=== PATIENT | female | born 1955 | race Caucasian/White ===

== ENCOUNTER 2019-09-14 20:06 | Emergency (ER) | payer BC, SELFPAY ==
[2019-09-14] VITALS (7 sets, daily range): BP systolic 151–183; BP diastolic 62–83; PULSE 59–74; RESP 18; TEMP 36.8; O2SAT 97–100; BMI 29.2
--- NOTE | 2019-09-14 20:32 | CTR_ITS ---
PROCEDURE INFORMATION: Exam: CT Abdomen And Pelvis With Contrast Exam date and time: 09/14/2019 9:41 PM Age: 64 years old Clinical indication: Abdominal pain; Localized; Right upper quadrant (ruq); Prior surgery; Surgery date: 6+ months; Surgery type: Appy; Additional info: Ruq pain TECHNIQUE: Imaging protocol: Computed tomography of the abdomen and pelvis with intravenous contrast. Total DLP: 1082.22 mGy-cm Radiation optimization: All CT scans at this facility use at least one of these dose optimization techniques: automated exposure control; mA and/or kV adjustment per patient size (includes targeted exams where dose is matched to clinical indication); or iterative reconstruction. Contrast material: OMNI 300; Contrast volume: 95 ml; Contrast route: IV; COMPARISON: No relevant prior studies available. FINDINGS: Liver: Normal. No mass. Gallbladder and bile ducts: There is intermediate attenuation filling the gallbladder body and fundus with low attenuation seen in the gallbladder neck likely representing gallbladder sludge filling the majority of the gallbladder. Further evaluation of this finding with gallbladder sonography is suggested. Pancreas: Normal. No ductal dilation. Spleen: There are punctate calcifications seen within the spleen compatible with calcified granulomas. Adrenals: Normal. No mass. Kidneys and ureters: Normal. No hydronephrosis. Stomach and bowel: Moderate stool is seen filling the ascending and transverse colon. Appendix: Status post appendectomy. Intraperitoneal space: Unremarkable. No free air. No significant fluid collection. Vasculature: Unremarkable. No abdominal aortic aneurysm. Lymph nodes: Unremarkable. No enlarged lymph nodes. Bladder: Unremarkable as visualized. Reproductive: Unremarkable as visualized. Bones/joints: Unremarkable. No acute fracture. Soft tissues: Unremarkable. CT/CT abdomen pelvis w con* [id number] IMPRESSION: 1. Intermediate attenuation material fills the gallbladder body and fundus with low attenuation remaining in the gallbladder neck, findings suggesting gallbladder sludge. There are no inflammatory changes seen to suggest cholecystitis. Follow-up evaluation with gallbladder sonography is suggested. 2. Moderate stool fills the ascending and transverse colon. Radiation Dose CTDIVOL = (mGy): DLP = 1082.22 (mGy-cm)
--- NOTE | 2019-09-14 20:33 | W.ED.ABDPA2 ---
HPI - Abdominal Pain General: Chief Complaint: Abdominal Pain Stated Complaint: FLU SYMPTOMS Time Seen by Provider: 09/14/19 20:26 History of Present Illness: HPI narrative: Patient complains about abdominal pain that started last night eased off a little bit throughout the night and started again today and is worse after eating at lunchtime and has not let up complains about pain in the right upper quadrant has nausea denies vomiting. Pain hurts through the back MD elicited complaint: abdominal pain Pertinent past history: none Onset (ago): hour(s) Pain Consistency: constant Location: RUQ Severity: severe Quality: stabbing and aching Associated Symptoms: Reports nausea; Denies chills, fever(s) and vomiting Review of Systems Const: Denies: fever, chills or body aches Eyes: Denies: change in vision or blurry vision ENMT: Denies: throat pain or nasal congestion Card: Denies: chest pain or shortness of breath on exertion Resp: Denies: shortness of breath, productive cough or non-productive cough GI: Reports: abdominal pain and nausea; Denies: vomiting Musc: Denies: extremity pain Skin/Breast: Denies: rash Neuro: Denies: headache Psych: Denies: anxiety or depression Roberth/Lymph: Denies: easy bruising PFSH ED PFSH: Social History Smoking and tobacco status: never smoked Physical Exam Const: COMMON NORMALS: no apparent distress, average body habitus and oriented x3 HENMT: COMMON NORMALS: normocephalic HEAD & SCALP: normal to inspection and normocephalic FACE & SINUS: normal facial exam Eye: COMMON NORMALS: conjunctivae normal GENERAL EYE: normal appearance of both eyes CONJUNCTIVA: Yes conjunctivae normal Neck/C-Spine: COMMON NORMALS: no JVD Chest: COMMONS NORMALS: inspection of chest normal Resp: COMMON NORMALS: normal respiratory effort and clear to auscultation bilaterally AUSCULTATION: clear to auscultation bilaterally Cardio: COMMON NORMALS: no JVD, regular rate and regular rhythm RATE: regular rate RHYTHM: regular rhythm GI: COMMON NORMALS: normal to inspection, nondistended, normoactive bowel sounds PALPATION: Yes tender Details: RUQ Extremity: COMMON NORMALS: normal to inspection and full ROM Neuro: COMMON NORMALS: oriented x3 Course Vital Signs: Vital signs: Vital Signs Temperature 98.3 F 09/14/19 20:22 Pulse Rate 74 09/14/19 20:22 Respiratory Rate 18 09/14/19 20:42 Blood Pressure 183/81 09/14/19 20:22 Pulse Oximetry 97 09/14/19 20:22 MDM - Abdominal Pain Lab Data: Labs: Lab Results 09/14/19 09/14/19 Range/Units 20:40 20:40 WBC 10.3 H (4.0-10.0) 10^3/ uL RBC 5.19 (4.1-5.3) 10^6/u L Hgb 15.0 (11.5-15.3) g/dL Hct 47.6 H (37.0-47.0) % MCV 91.7 (81-99) fL MCH 28.9 (28.0-34.0) pg MCHC 31.5 (30.0-36.0) g/dL RDW 12.5 (12.1-15.1) % Plt Count 301 (130-400) 10^3/c mm MPV 10.9 H (7.4-10.4) fL Neut % (Auto) 63.9 % Lymph % (Auto) 26.8 % Tripp % (Auto) 7.3 % Eos % (Auto) 1.4 % Baso % (Auto) 0.4 % Neut # (Auto) 6.6 (1.8-7.7) 10^3/u L Lymph # (Auto) 2.8 (0.8-4.8) 10^3/u L Tripp # (Auto) 0.8 (0.2-0.9) 10^3/u L Eos # (Auto) 0.1 (0.0-0.8) 10^3/u L Baso # (Auto) 0.0 (0.0-0.1) 10^3/u L Nucleated RBC % (a uto) 0 % Nucleated RBCs # 0.0 /100WBC Sodium 140 (136-145) mmol/L Potassium 3.8 (3.5-5.1) mmol/L Chloride 100 (98-107) mmol/L Carbon Dioxide 28 (22-29) mmol/L Anion Gap 15.8 (5-19) BUN 14 (8-23) mg/dL Creatinine 0.8 (0.5-0.9) mg/dL GFR Calculation 72.2 L (90-130) mL/min Glucose 133 H (65-115) mg/dL Calculated Osmolal ity 288 (285-295) mOsm/k g Calcium 10.4 (8.5-10.5) mg/dL Total Bilirubin 0.5 (0.15-1.2) mg/dL AST 22 (0-32) U/L ALT 20 (0-33) U/L Alkaline Phosphata se 59 (35-105) IU/L Total Protein 8.2 (6.6-8.7) g/dL Albumin 4.6 (3.5-5.2) g/dL Globulin 3.6 (1.3-4.6) g/dL Lipase 26 (13-60) U/L EKG Data ^: EKG 1: EKG interpretation date: 09/14/19 EKG interpretation time: 20:46 Computer generated interpretation: Sinus rhythm ventricular rate 64 bpm WV interval 164 ms QRS durations 83 Leeanna seconds low QRS voltage in precordial leads nonspecific T wave abnormality Discharge Plan Discharge Prescriptions: No Action Fish Oil 1,000 mg (120 mg-180 mg) Capsule 1 cap PO DAILY RF: 0 Daily Multiple For Women 1 tab PO DAILY RF: 0 Coding Level of Care Code ED Chief Mechanical Engineer for Chg Fwd Exam Comprehensive
--- NOTE | 2019-09-14 20:34 | ECG_ITS ---
Measurements Intervals [place] Rate: 64 P: 57 [place]: 164 QRS: 21 QRSD: 83 T: 69 QT: 387 QTc: 399 SINUS RHYTHM LOW QRS VOLTAGE IN PRECORDIAL LEADS [QRS DEFLECTION < 1.0 mV IN CHEST LEADS] NONSPECIFIC T-WAVE ABNORMALITY No previous ECG available for comparison Electronically Signed On 09-15-2019 8:01:06 CDT by Saad Camacho M.D. [email or web address]
[2019-09-14] MEDS: ondansetron 2 mg/ML SDV 2 mL 4 MG IVP (20:42)
[2019-09-14] MEDS: morphine 4 mg/mL SDV 1 mL IVP ×2 (20:42→22:05)
[2019-09-14] MEDS: sodium chloride 0.9% 1,000 ML 999 ML IV (20:43)
[2019-09-14 20:52] LABS: Basophils % 0.4 %; Eosinophils # 0.1 10^3/uL (0.0-0.8); Eosinophils % 1.4 %; Hematocrit 47.6 % (37.0-47.0); Lymphocytes # 2.8 10^3/uL (0.8-4.8); Lymphocytes % 26.8 %; Mean Corpuscular HGB Conc 31.5 g/dL (30.0-36.0); Mean Corpuscular Hemoglobin 28.9 pg (28.0-34.0); Mean Corpuscular Volume 91.7 fL (81-99); Mean Platelet Volume 10.9 fL (7.4-10.4); Monocytes # 0.8 10^3/uL (0.2-0.9); Monocytes % 7.3 %; Neutrophils # 6.6 10^3/uL (1.8-7.7); Neutrophils % 63.9 %; Nucleated Red Blood Cells % 0 %; Platelet Count 301 10^3/cmm (130-400); Red Blood Count 5.19 10^6/uL (4.1-5.3); Red Cell Distribution Width 12.5 % (12.1-15.1); White Blood Count 10.3 10^3/uL (4.0-10.0)
[2019-09-14 20:58] LABS: Alanine Aminotransferase 20 U/L (0-33); Albumin Level 4.6 g/dL (3.5-5.2); Alkaline Phosphatase 59 IU/L (35-105); Anion Gap 15.8 (5-19); Aspartate Amino Transferase 22 U/L (0-32); Blood Urea Nitrogen 14 mg/dL (8-23); Calcium 10.4 mg/dL (8.5-10.5); Carbon Dioxide 28 mmol/L (22-29); Chloride 100 mmol/L (98-107); Globulin 3.6 g/dL (1.3-4.6); Glomerular Filtration Rate 72.2 mL/min (90-130); Glucose 133 mg/dL (65-115); Lipase 26 U/L (13-60); Osmolality Calculated 288 mOsm/kg (285-295); Potassium 3.8 mmol/L (3.5-5.1); Sodium 140 mmol/L (136-145); Total Bilirubin 0.5 mg/dL (0.15-1.2); Total Protein 8.2 g/dL (6.6-8.7)
[2019-09-14 22:31] LABS: Add Urine Microscopic? YES; Bacteria Urine 1+; Bilirubin Urine Neg (NEGATIVE); Blood Urine Neg (Negative); Glucose Urine UA Norm (Normal); Ketones Urine Negative (Negative); Leukocyte Esterase Urine 1+ (Negative); Nitrate Urine Negative (Negative); Protein Urine Neg (Negative); RBC Urine 0-4 /hpf (0-2); Specific Gravity, Urine 1.015 (1.005-1.030); Squamous Epithelial Cell Urine 0-4 (0-5); Urine Appearance Cloudy (CLEAR); Urine Color Yellow (Yellow); Urobilinogen Urine Norm (Negative); WBC Urine 0-4 /hpf (0-5); pH Urine 8 (5-7)
[2019-09-14 22:32] LABS: Amorphous Sediment Urine 2+; Sulfosalicylic Acid Urine Negative (Negative)
--- NOTE | 2019-09-14 23:03 | PC.NURSE ---
Report received from mid shift nurse
[2019-09-15 00:05] VITALS: BP 155/60; PULSE 66; RESP 16; O2SAT 98
== END 2019-09-15 00:06 | disposition home or self-care (01) ==
PROVIDERS: Emergency Provider Nurse Practitioner Family; Family Provider Family Medicine
DX: K82.8 Other specified diseases of gallbladder (principal)
CPT/HCPCS: 12345; 74177; 80053; 81001; 83690; 85025; 93005; 96360; 96361; 96374; 96375; 96376; 99283; J2270; J2405; J7030; Q9967

== ENCOUNTER 2019-09-15 12:21 | Day surgery (SDC) | payer BC, SELFPAY ==
[2019-09-15] VITALS (10 sets, daily range): BP systolic 122–171; BP diastolic 55–74; PULSE 61–76; RESP 15–17; TEMP 36.6–36.9; O2SAT 94–100; BMI 29.2
[2019-09-15] MEDS: sodium chloride 0.9% 1,000 ML 30 ML IV (13:01)
[2019-09-15] MEDS: fentaNYL 50 mcg/mL INJ 2mL 100 MCG IVP (13:03)
--- NOTE | 2019-09-15 13:08 | ANES.PREANE2 ---
Pre-Anesthetic Assessment Pre-Anesthetic Assessment: Height/Weight: Height 1.6 m Weight 74.843 kg Temp Pulse Resp BP Pulse Ox 98.4 F 61 16 171/66 100 09/15/19 12:52 09/15/19 12:52 09/15/19 13:03 09/15/19 12:52 09/15/19 12:52 Preop Diagnosis: symptomatic cholelithiasis Proposed Procedure: Operation Date: 09/15/19 14:10 Proposed Procedures p Laparoscopic Cholecystectomy 93101 K82.8(Not Applicable) - Josue Acosta MD Familial anesthetic complications: PONV Was Beta Teri taken within 24 hours: N/A Last intake: Intake Last Liquid Date 09/15/19 Last Liquid Time 07:00 Last Solid Date 09/14/19 Last Solid Time 17:00 Social: Social History: No alcohol and No tobacco Exam: Pre-Anes Outpt Exam: alert, oriented x 3, clear to auscultation bilaterally and regular rate & rhythm Airway: Cervical ROM: WNL MP: 2 Additional comments: missing Pulmonary: Pulmonary: None reported CV/HEM: CV/HEM: None reported : : None reported Hepatic: Hepatic: None reported GI: GI: None reported Metabolic: Metabolic: None reported Musc/skel: Musc/skel: None reported Neuropsych: Neuropsych: None reported Anesthetic Plan: ASA status: 1 Anesthesia: General Risk of > 500 ml blood loss (7ml/kg in children): No Meds/Allergies Current Medications: Current Medications Generic Name Dose Route Start Last Admin Trade Name Freq PRN Reason Stop Dose Admin Sodium Chloride 1,000 mls @ 30 ml s/hr 09/15/19 12:30 09/15/19 13:01 Sodium Chloride 0.9% IV 09/16/19 12:29 30 mls/hr .Q24H BESSIE Administration PFSH Anesthesia PFSH: Surgical History (Updated 09/15/19 @ 11:01 by Josue Acosta MD) History of appendectomy History of Social History (Updated 09/15/19 @ 10:48 by TREE Gregory) Smoking and tobacco status: never smoked History of recent travel: No Data Anesthesia Cardiac Studies: No Data to Display
[2019-09-15] MEDS: fentaNYL 50 mcg/mL INJ 2mL IVP (14:30)
--- NOTE | 2019-09-15 16:04 | SUR.PHASEI ---
1602 PATIENT TO PACU AT THIS TIME FROM OR. RR EVEN AND UNLABORED. ORAL AIRWAY IN PLACE. SPO2 95% ON SIMPLE MASK AT 8L. PATIENT NOTED TO BE RESTING WITH EYES CLOSED. NO DISTRESS. 4 INCISIONS TO ABDOMEN, CDI. 1604 ORAL AIRWAY REMOVED AT THIS TIME. SPO2 95% ON SIMPLE MASK AT 8L.
--- NOTE | 2019-09-15 16:15 | PM.PACU ---
PACU note PACU note: no s/s distress. pain controlled. no N/V Post-Anesthesia Exam: awake and vital signs stable Disposition: discharged
--- NOTE | 2019-09-15 16:25 | SUR.PHASEI ---
1621 TO OPS AT THIS TIME. NO DISTRESS. RR EVEN AND UNLABORED. RATES PAIN 4/10. TOLERATING ICE CHIPS, DENIES NAUSEA.
[2019-09-15] MEDS: HYDROcodone-acetaminophen 5-325 mg Tablet 1 TAB PO (16:37)
[2019-09-15] MEDS: ondansetron 2 mg/ML SDV 2 mL 4 MG IVP (16:37)
--- NOTE | 2019-09-15 17:04 | P.OP_ITS ---
Operative Report Date of procedure: September 15, 2019 Pre-op Diagnosis: symptomatic cholelithiasis Post-op Diagnosis: Acute calculus cholecystitis Procedure Done: Laparoscopic cholecystectomy Pathology: Gallbladder Surgeon: Josue Acosta Anesthesia: General Estimated blood loss (mL): 25 Condition: stable Disposition: PACU Procedure: The patient was taken to the operating room and was intubated under general anesthesia. After the antibiotic had been administered, the abdomen was prepped and draped in a sterile manner. Using a #15 blade, a 1 centimeter infraumbilical curvilinear incision was made and using an open Smith technique the peritoneal cavity was entered. A 10 millimeter port was placed and 15 millimeters of pneumoperitoneum was created. A 10 millimeter, 30 degrees scope was then introduced. Three 5 millimeter ports were placed in the epigastric, midclavicular and the anterior axillary line two fingerbreadths below the costal margin on the right side under the direct visualization. The gallbladder is acutely inflamed, distended and therefore decompressed using an aspiration needle. Ratcheted forceps were introduced into the lateral most port and was used to retract the fundus of the gallbladder cephalad and using forceps the infundibulum of the gallbladder was retracted laterally. Using L-hook cautery the peritoneum overlying the Calot's triangle was opened medially and laterally until the cystic duct and the cystic artery were skeletonized. Dissection was carried along the body of the gallbladder and after ensuring critical view of safety, 4 clips applied on the cystic duct and 3 clips applied on the cystic artery and cut leaving, 3 clips on the remaining portion of the duct and 2 clips on the remaining portion of the artery. The rest of the gallbladder was dissected off the liver using L-hook cautery. There was no bleeding or bile leaking noted from the gallbladder fossa and the clips appeared to be in place. An EndoCatch bag was introduced to remove the gallbladder. All the ports were removed under direct visualization and there was no bleeding noted from the port sites. The fascia of the umbilicus was closed using [id number] 0 Vicryl roberson tures and the subcutaneous tissue was approximated using 3-0 Vicryl sutures. The skin at all four ports were closed using 4-0 Monocryl and Dermabond. A total of 10 millimeters of 0.5% Marcaine was infiltrated around the port sites. The patient was stable throughout the procedure.
== END 2019-09-15 17:00 | disposition home or self-care (01) ==
PROVIDERS: Family Provider Family Medicine; PCP Family Medicine; Visit Provider Surgery
PROC: 0FT44ZZ Resection of Gallbladder, Percutaneous Endoscopic Approach (ICD-10-PCS; CPT 47562; principal; 2019-09-15 14:10)
DX: K80.10 Calculus of gallbladder with chronic cholecystitis without obstruction (principal); Z90.49 Acquired absence of other specified parts of digestive tract
CPT/HCPCS: 47562; 12345; 88304; 96374; 96375; J0690; J1100; J1885; J2001; J2405; J2704; J2765; J3010; J3490; J7030

== ENCOUNTER 2020-02-16 15:14 | Outpatient (CLI) | payer BC, SELFPAY ==
--- NOTE | 2020-02-16 15:19 | MM_ITS ---
WS: [id number] SCREENING DIGITAL MAMMOGRAM WITH CAD HISTORY: SCREENING COMPARISON: 04/29/2018, 03/06/2018 Bilateral CC and MLO views submitted. Computer aided detection analyzed. Breast composition: There are scattered areas of fibroglandular density. No suspicious masses, microc alcifications or architectural distortion. MM/[id number] IMPRESSION: BI-RADS: 1-Negative FOLLOW UP: 1 Year Follow-up
== END 2020-02-16 15:15 | disposition home or self-care (01) ==
LOC: RADSHAW 15:17
PROVIDERS: PCP Family Medicine; Visit Provider Family Medicine
DX: Z12.31 Encounter for screening mammogram for malignant neoplasm of breast (principal)
CPT/HCPCS: 77067

== ENCOUNTER 2021-04-07 11:25 | Outpatient (CLI) | payer MEDICARE, SELFPAY ==
--- NOTE | 2021-04-07 11:32 | MM_ITS ---
WS: [id number] BILATERAL DIGITAL SCREENING MAMMOGRAPHY WITH CAD CLINICAL INFORMATION: SCREENING HISTORY: Screening mammogram. No current complaints. COMPARISON: February 16, 2020 TECHNIQUE: Bilateral CC and MLO views. FINDINGS: Scattered fibroglandular densities bilaterally. A few benign punctate calcifications. No suspicious f ocal mass, asymmetry, calcifications, or architectural distortion. No evidence of malignancy. MM/[id number] IMPRESSION: BI-RADS: 2-Benign FOLLOW UP: 1 Year Follow-up Recommend return to annual screening mammography.
== END 2021-04-07 11:26 | disposition home or self-care (01) ==
PROVIDERS: PCP Family Medicine; Visit Provider Nurse Practitioner Family
DX: Z12.31 Encounter for screening mammogram for malignant neoplasm of breast (principal)
CPT/HCPCS: 77067